=== PATIENT | female | born 1930 | race Caucasian/White ===

== ENCOUNTER 2016-05-09 12:00 | Observation (INO) | payer OTHER, MEDICARE, BC ==
[~2016-05-09] VITALS: Ht 172.7 cm; Wt 81.7 kg
--- NOTE | ~2016-05-09 | CON ---
PATIENT'S NAME: DORA MCCOY AGE: 85 Y [address] ROOM: [place] [address] LOCATION: GPCU ADMIT DATE: 05/09/2016 Consultation DISCHARGE DATE: FAMILY PHYSICIAN: LUCINA JULIEN MD ATTENDING PHYSICIAN: LUCINA JULIEN DATE OF CONSULTATION: 05/09/2016 REASON FOR CARDIOLOGY CONSULT: Rapid ventricular rate. HISTORY OF PRESENT ILLNESS: This is an 85-year-old female with a known history of paroxysmal atrial fibrillation/atrial flutter. She is transferred from the [facility] due to the nurses detecting a rapid ventricular rate on their vital sign's evaluation. The patient denied any symptoms including presyncope or syncope, chest pain, shortness of breath, palpitations, nausea, vomiting, diarrhea, or diaphoresis. At the time of this consult, she is resting comfortably in the ER bed. She did have an initial conversion back to a slow atrial flutter rate with 5 mg of IV Cardizem bolus, but as our evaluation continued, she is converted back to a rapid ventricular rate with a heart rate of 160. Once again, she has no complaints of any symptoms and would "like to go home." Her past medical history includes diabetes mellitus, previous CVA, atrial fibrillation/flutter, right hip fracture, hypertension, and a history of recurrent falls. PAST MEDICAL HISTORY: 1. Paroxysmal atrial fibrillation/flutter. 2. Hypertension. 3. Diabetes mellitus. 4. Hypothyroidism. 5. Dementia. 6. CVA. 7. Arthritis. PAST SURGICAL HISTORY: The patient has had a previous left knee replacement, as well as a hysterectomy in 1975, and a right hip repair in February of this year 2016. She has also had tonsillectomy. FAMILY HISTORY: The patient's mother had a history of breast cancer, and her father had a history of Parkinson's. She has one sister with a history of lung cancer. SOCIAL HISTORY: PATIENT'S NAME: DORA MCCOY AGE: 85 Y [address] ROOM: [place] [address] LOCATION: GPCU ADMIT DATE: 05/09/2016 Consultation DISCHARGE DATE: FAMILY PHYSICIAN: LUCINA JULIEN MD ATTENDING PHYSICIAN: LUCINA JULIEN The patient is a former cigarette smoker. She denies alcohol or illicit drug use. CURRENT MEDICATIONS: 1. Glucophage 500 mg p.o. daily in the evening. 2. Digoxin 250 mcg p.o. daily in the evening. 3. Levothyroxine 200 mcg p.o. daily in the evening. 4. She has previously received 5 mg of Cardizem IV bolus and plans to proceed with an IV Cardizem drip. MEDICATION ALLERGIES: No known medication allergies. REVIEW OF SYSTEMS: Pertinent positive review of systems listed in the HPI. All other review of systems evaluated and negative. DIAGNOSTICS: CMS evaluation shows sodium of 143, potassium 4.2, BUN of 8, creatinine 0.7, and a glucose of 130. Her magnesium level is 2. She has troponin level of less than 0.04. CBC evaluation shows a white blood cell count of 9.2, hemoglobin of 14.2, hematocrit of 43, and a platelet of 265. Her EKG after the Cardizem showed atrial flutter with a ventricular rate in the 80s. Her QTc at that time was 378. Her second EKG showed atrial flutter with rapid ventricular rate with a heart rate of 160. PHYSICAL EXAMINATION: VITAL SIGNS: Temperature 98.3, pulse 145, respirations 16, blood pressure 126/61, O2 saturation 95% on room air. The patient weighs 81.7 kg. SKIN: [place], warm, and dry. EYES: Sclerae clear. No xanthelasmas. ENT: Oral mucosa is pink and moist. No jugular venous distention. No carotid bruits. CHEST: Respirations are even and unlabored. LUNGS: Clear to auscultation. HEART: Regular rate and rhythm. Normal S1, S2. She is noted to be tachycardic and once again is in atrial flutter on her EKG. ABDOMEN: Soft, nontender. MUSCULOSKELETAL: Gait is normal. EXTREMITIES: Peripheral pulses palpable. No clubbing, cyanosis. She does have trace lower extremity edema present. PSYCH: Alert and oriented. Her mood and affect are appropriate. She is slightly confused to past Medical history, but does reorient with the help of her family. PATIENT'S NAME: DORA MCCOY AGE: 85 Y [address] ROOM: [id number] [place] [id number] [facility] ADMIT DATE: 05/09/2016 Consultation DISCHARGE DATE: FAMILY PHYSICIAN: LUCINA JULIEN MD ATTENDING PHYSICIAN: LUCINA JULIEN IMPRESSION AND PLAN: Per Dr. Alatorre: 1. Atrial flutter with rapid ventricular rate. 2. Hypertension. 3. Diabetes mellitus. 4. History of a recent right hip fracture repair. 5. History of CVA. We will continue the patient's medical treatment for aflutter with propafenone 150 mg p.o. 3 times daily. We will also start her on a Cardizem drip with titration per protocol after another 10 mg IV bolus of Cardizem. We will consult the primary care team to help assist with medical management. We do recommend a 2D echocardiogram if she has not had one recently. We will check a BNP and an EKG in the morning and continue to monitor, evaluate, and treat as appropriate. Thank you for this consult. Thank you for allowing [facility] to interact in the care of this patient. ENOCH DENSON APRN FOR MD ILENE ALMONTE/keeleyl /[id number] d: 05/10/16 2255 t: 05/14/16 1713, CONSULTATION REPORT
--- NOTE | ~2016-05-09 | ER ---
PATIENT'S NAME: DORA MCCOY [facility] AGE: 85 Y [address] ROOM: [place] [id number] LOCATION: GPCU ADMIT DATE: 05/09/2016 ER/Outpatient Report DISCHARGE DATE: FAMILY PHYSICIAN: LUCINA HARDY MD ATTENDING PHYSICIAN: LUCINA HARDY TIME OF ARRIVAL: 12 hours. TIME SEEN: 1220 hours. IDENTIFICATION: An 85-year-old female. CHIEF COMPLAINT: Rapid heart rate. HISTORY OF PRESENT ILLNESS: The patient is an 85-year-old female who comes from [facility]. On routine vitals this morning, she was found to have a heart rate that was elevated and then when rechecked was 150s. She denies any pain or problems herself. She was not able to give much history. She is on Rythmol and dig and she was not sure why. Records reflect that she has seen Dr. Moses and has had some paroxysmal atrial fibrillation. She was recently hospitalized. ALLERGIES: NO KNOWN DRUG ALLERGIES. CURRENT MEDICATIONS: 1. Amaryl 2 mg b.i.d. 2. Aspirin 81 mg daily. 3. Digoxin 250 mcg daily. 4. Ferrous sulfate 325 mg daily. 5. Glucophage 850 mg daily. 6. Levothyroxine 200 mcg daily. 7. Metformin 500 mg daily. 8. Propafenone 150 mg 3 times daily. 9. Xarelto 20 mg once daily. MEDICAL PROBLEMS: Paroxysmal atrial fibrillation, diabetes mellitus, type 2, hypertension, early dementia, supraventricular tachycardia, resolved, anemia, secondary to blood loss, acute, not present on admission per her last hospital stay, and right subtrochanteric fracture, right femur, closed. PATIENT'S NAME: DORA MCCOY [facility] AGE: 85 Y [address] ROOM: [address] [address] LOCATION: GPCU ADMIT DATE: 05/09/2016 ER/Outpatient Report DISCHARGE DATE: FAMILY PHYSICIAN: LUCINA HARDY MD ATTENDING PHYSICIAN: LUCINA HARDY PRIOR SURGERIES: Please refer to old records. FAMILY HISTORY: No pertinent family history identified. SOCIAL HISTORY: The patient is . She is currently at [facility] recovering from her recent hip fracture. Tobacco use, denies. Alcohol use, denies. Drug use, denies. REVIEW OF SYSTEMS: All systems reviewed and negative other than what is noted in the HPI. The patient denies chest pain. No shortness of breath. She is currently asymptomatic. PHYSICAL EXAMINATION: VITAL SIGNS: Height 5 feet, 8 inches and weight 87.1 kg. Blood pressure 113/74, pulse 154, respirations 16, temperature 98.5, and sats 96%. EMERGENCY DEPARTMENT COURSE: I did attempt Valsalva maneuvers with the patient, but she had trouble performing any of them. Initial EKG done at 1226 hours, the computer read it out as supraventricular tachycardia, it is fairly regular, I do not appreciate P waves with her history, I wonder if it is more aflutter, and rate is 160 beats per minute. Labs were ordered, cardiac labs were ordered, an IV was started, and she was given Cardizem 15 mg was ordered. She only received 5 mg when she did convert to a slower rhythm, she remained AFib or flutter, it looks like on the 12-lead EKG more of an aflutter at 83 beats per minute. No acute ST-elevation or depression. Nonspecific ST-T wave changes. Sodium 143, potassium 4.2, chloride 107, CO2 20, BUN 8, creatinine 0.7, and blood sugar 130. Liver enzymes normal. Magnesium 2.0, CPK 28, CK-MB less than 0.5, and troponin I less than 0.040. Hemoglobin 14.2, hematocrit 43, platelets 265, and white count 9.2. INR 1.1. D-dimer 0.47. Dig level slightly low at 0.63. Pro-BNP 3604. TSH 0.241. [facility] Cardiology was consulted and Dr. Jus Campa, advanced practice provider, evaluated the patient in the emergency room. She had converted to slower rhythm and we are awaiting for her labs to come back when she again went back to a rate of 160 beats per minute. A repeat EKG done at that time at 2 p.m. revealed SVT versus atrial flutter at 160 beats per minute. Nonspecific ST-T wave changes. She again was given Cardizem and another bolus was ordered of [address] Alatorre who was now at the bedside followed by Cardizem drip per protocol. The patient will be admitted to the hospital by her primary care physician Dr. Hardy with Cardiology consultation. The patient arrived to the ER at 12, was seen at 1220 hours, PATIENT'S NAME: DORA MCCOY [facility] AGE: 85 Y [address] ROOM: [address] [address] [facility] ADMIT DATE: 05/09/2016 ER/Outpatient Report DISCHARGE DATE: FAMILY PHYSICIAN: LUCINA HARDY MD ATTENDING PHYSICIAN: LUCINA HARDY and left the emergency room at 1547 hours. Thirty-five minutes of critical care was provided with this patient. MD ADRIANA ELLIOTT/avi /[id number] d: 05/10/16 0057 t: 05/15/16 0114, OUTPATIENT REPORT
[~2016-05-09 12:00] MED LIST: AMARYL2 MG PO; ASPIRIN LO-DOSE81 MG PO; GLUCOPHAGE1000 MG PO; GLUCOPHAGE500 MG PO; GLUCOPHAGE850 MG PO; JANUMET 50-5001 EACH PO; LANOXIN (DIGI250 MCG PO; LEVOTHROID (S200 MCG PO; RYTHMOL150 MG PO
[2016-05-09 13:25] LABS: BASOPHIL # 0.1 K/uL (0.0-0.2); BASOPHIL % 0.9 %; EOSINOPHIL # 0.2 K/uL (0.0-0.5); EOSINOPHIL % 2.6 %; HEMOGLOBIN 14.2 g/dL (10.0-15.0); IMMATURE GRANULOCYTE % 0.4 %; LYMPHOCYTE # 2.2 K/uL (0.8-4.0); LYMPHOCYTE % 24.5 %; MCH 29.6 pg (27.0-34.0); MONOCYTE # 0.7 K/uL (0.0-1.0); MONOCYTE % 7.2 %; MPV 9.7 fl (9.4-12.4); NEUTROPHIL # (ANC) 5.9 K/uL (1.8-7.8); NEUTROPHIL % 64.4 %; NRBC % 0 /100WBC (0-0.00); RBC 4.79 M/uL (3.00-5.00); RDW-CV 14.1 % (11.9-14.6); WBC 9.2 K/uL (4.0-11.0)
[2016-05-09 13:26] LABS: MCV 89.8 fl (83.0-98.0); PLATELET COUNT 265 K/uL (150-450)
[2016-05-09 13:36] LABS: INR - (THERAPEUTIC) 1.1 (0.9-1.1); PROTIME 11.8 SECONDS (9.6-11.1); PTT 32 SECONDS (25-32)
[2016-05-09 14:23] LABS: ALBUMIN 3.4 gm/dL (3.5-5.0); ALK PHOS 77 IU/L (33-138); ALT 21 IU/L (12-78); ANION GAP 20.2 (10.0-19.0); AST 15 IU/L (10-40); BLOOD UREA NITROGEN 8 mg/dL (6-24); CALCIUM 8.6 mg/dL (8.5-10.5); CHLORIDE 107 mMol/L (96-110); CO2 20 mMol/L (22-32); CPK 28 IU/L (21-215); CREATININE 0.7 mg/dL (0.5-1.1); ESTIMATED GFR (MDRD EQUATION) > 60; POTASSIUM 4.2 mMol/L (3.7-5.1); SODIUM 143 mMol/L (135-145); TOTAL BILIRUBIN 0.4 mg/dL (0.0-1.5); TOTAL PROTEIN 6.8 g/dL (6.0-8.4)
[2016-05-09] MEDS ORDERED: FEOSOL325 MG PO (16:45)
[2016-05-09] MEDS ORDERED: XARELTO20 MG PO (16:47)
--- NOTE | 2016-05-09 17:00 | NUR ---
Pt is 85 y/o female admit for afib w rvr for . Pt alert and oriented x3. Has some dementia according to [facility] records. Hx htn,CVA,ELY SHOSHONE, irregular rhythms,hypothyroid,DM type 2,constipation,weakness,hx falls. Pt states she had a fx'd hip in February and has been doing PT and just started bearing weight on it recently. Has VERNON hose on for VTE prophylaxis. PT resides at [facility]. No allergies. Daughter at bedside.
--- NOTE | 2016-05-10 04:35 | NUR ---
Significant Event: Patient is alert/oriented x3, forgetful at times. Cardizem turned off at 0230 for sustained rates in upper 60's-70's. Remains in atrial flutter. Other vital signs are stable. She is on room air. Denies any pain, except for left hip with some repositioning. Incontinent of urine and stool. Follow up: Continue to monitor heart rates.
[2016-05-10 06:11] LABS: BLOOD UREA NITROGEN 9 mg/dL (6-24); CALCIUM 8.2 mg/dL (8.5-10.5); CHLORIDE 107 mMol/L (96-110); CO2 26 mMol/L (22-32); CREATININE 0.7 mg/dL (0.5-1.1); ESTIMATED GFR (MDRD EQUATION) > 60; SODIUM 143 mMol/L (135-145)
--- NOTE | 2016-05-10 12:24 | NUR ---
1000 Called [facility] and left a message for Silvina and Carmina about pt coming back to their facility. Possible discharge tomorrow and I asked if it would be possible for a van pickup on the or if not what time would work for Friday. 1015 Introduced self and CM role to patient. Told her that we would be working with [facility] on setting up a time for them to come get her when she is medically stable. She voiced understanding and was okay with this plan. Put transfer order and meds on her chart, Neyda created a packet. Will continue to follow and assist. CM [employer] TH.
[2016-05-10] MEDS ORDERED: DULCOLAX10 MG R (17:49)
[2016-05-10] MEDS ORDERED: FLEET133 ML R (17:50)
[2016-05-10] MEDS ORDERED: GLUCAGON EMERGEN1 MG SUB-Q (17:50)
--- NOTE | 2016-05-10 17:50 | NUR ---
Significant Event: A/O. Denies pain except at times with movement. HR 60s-70s. RA. Refused to get up out of bed. Incont of bowel and bladder. Follow up: plan to dismiss to [facility] at 1000 tomorrow. PRN meds need addressed, med recon tech notified to complete- [facility] needs this before they will accept her back
[2016-05-10] MEDS ORDERED: GLUCOSE4 GM PO (17:51)
[2016-05-10] MEDS ORDERED: TYLENOL325 MG PO (17:52)
[2016-05-10] MEDS ORDERED: HYDROCODON-ACE1 EAC4 PO (17:52)
[2016-05-10] MEDS ORDERED: MILK OF MA400 MG/5 M PO (17:53)
[2016-05-10] MEDS ORDERED: HYDROCORT 1% CR30 GM TOP (17:55)
--- NOTE | 2016-05-11 04:16 | NUR ---
Significant Event: Patient alert and oriented x 3. Denies pain. Denies shortness of breath. Patient in bed throughout entire shift. Had mult incont of urine episodes. Skin remains intact. Patient very verbal about [id number] to discharge to home however remained polite and cooperative with cares for this nurse. Expected to DC to [facility] in AM. Follow up: Continue to monitor per POC
--- NOTE | 2016-05-11 09:15 | NUR ---
Significant Event: PT A&O x3, forgetful. VSS. Denies pain. Shayan hose on. Briefs/depends on for incontinence of bowel/bladder. PT repositioned side to side in bed, refused to get up to chair. Tolerating diet. IV to R)hand. Follow up: Plan to transfer to [facility] at 1000.
== END 2016-05-11 10:25 ==
LOC: GMED 12:00 → GPCU 15:17
PROVIDERS: Family Medicine; Internal Medicine Interventional Cardiology; ADMIT Family Medicine
DX: I48.0 Paroxysmal atrial fibrillation (principal); I47.1 Supraventricular tachycardia; I63.9 Cerebral infarction, unspecified; I10 Essential (primary) hypertension; D50.0 Iron deficiency anemia secondary to blood loss (chronic); E03.9 Hypothyroidism, unspecified; F03.90 Unspecified dementia, unspecified severity, without behavioral disturbance, psychotic disturbance, mood disturbance, and anxiety; E11.9 Type 2 diabetes mellitus without complications; M19.90 Unspecified osteoarthritis, unspecified site; Z87.891 Personal history of nicotine dependence; Z96.652 Presence of left artificial knee joint; Z90.710 Acquired absence of both cervix and uterus; Z79.82 Long term (current) use of aspirin; Z98.890 Other specified postprocedural states; Z79.84 Long term (current) use of oral hypoglycemic drugs; Z79.899 Other long term (current) drug therapy
CPT/HCPCS: G0378; G8987; G8988; G8989; G8990; G8991; G8992; J7030; J7040